=== PATIENT | male | born 1990 | race African-American/Black ===

== ENCOUNTER 2022-08-11 07:31 | Emergency (ER) | payer MEDICAID, OTHER ==
[~2022-08-11] VITALS: Ht 170.2 cm; Wt 93.6 kg
[2022-08-11 08:39] VITALS: BP 109/64
[2022-08-11] MEDS ORDERED: ACETAMINOPHEN 500 MG TAB PO ONE (09:00)
[2022-08-11] MEDS ORDERED: CYCL-839 PO (09:20)
[2022-08-11] MEDS ORDERED: IBUP600T28 PO (09:20)
== END 2022-08-11 09:25 | disposition home or self-care (01) ==
LOC: ER 07:31
DX: S39.012A Strain of muscle, fascia and tendon of lower back, initial encounter (principal); R51.9 Headache, unspecified; V43.62XA Car passenger injured in collision with other type car in traffic accident, initial encounter; Y93.89 Activity, other specified; Y92.410 Unspecified street and highway as the place of occurrence of the external cause; Y99.8 Other external cause status
CPT/HCPCS: 70450; 72100

== ENCOUNTER 2022-10-23 17:22 | Emergency (ER) | payer MEDICAID ==
[~2022-10-23] VITALS: Ht 167.6 cm; Wt 94.0 kg
[~2022-10-23 17:22] MED LIST: CYCL-839 PO; IBUP600T28 PO
[2022-10-23 17:40] VITALS: BP 120/71
[2022-10-23] MEDS ORDERED: KETOROLAC TROMETH 30 MG/ML 1ML VIAL IM ONE (21:30)
== END 2022-10-24 02:00 | disposition home or self-care (01) ==
LOC: ER 17:22
DX: M79.642 Pain in left hand (principal); F12.10 Cannabis abuse, uncomplicated; X58.XXXA Exposure to other specified factors, initial encounter; Y93.89 Activity, other specified; Y92.89 Other specified places as the place of occurrence of the external cause; Y99.8 Other external cause status
CPT/HCPCS: 29125; 73130; 96372; 99283; J1885